=== PATIENT | male | born 1955 | race Caucasian/White ===

== ENCOUNTER → 2017-07-12 07:38 | Outpatient (CLI) | payer MEDICARE ==
[2016-03-03 12:41] VITALS: BMI 27.9
[~2017-07-12 07:38] MED LIST: CHANTIX 1 MG TAB1 MG PO; EFUDEX 5 % CREA40 GM TOPICAL; EPIVIR300 MG PO; GLUCOPHAGE500 MG PO; NEURONTIN 300300 MG PO; NORCO 7.5/325 T1 TA1 PO; NORVIR100 M1 PO; PLAVIX75 MG PO; PROAIR HFA8.5 GM INH; REYATAZ300 MG PO; ZANAFLEX4 MG PO; ZESTRIL20 MG PO
[2017-07-12 08:12] LABS: BASOPHILS 0.5 % (0-2); HEMATOCRIT 38.9 % (42.0-54.0); HEMOGLOBIN 13.8 g/dL (13.5-17.5); IMMATURE GRANULOCYTES 0.5 % (0-5); LYMPHOCYTES 37.2 % (15-50); MCH 32.7 pg (26.0-34.0); MCHC 35.5 g/dL (31.0-37.0); MCV 92.2 fL (80.0-100.0); MEAN PLATELET VOLUME 9.5 fL (7.4-10.4); MONOCYTES 7.9 % (2-11); NEUTROPHILS 50.9 % (40-80); PLATELET COUNT 137 10x3/uL (130-400); RBC 4.22 10x6/uL (4.20-6.10); RDW 12.5 % (11.5-14.5); WBC 4.3 10x3/uL (4.8-10.8)
[2017-07-12 08:23] LABS: APTT 25.2 SECONDS (22.8-39.4); PROTIME 12.8 SECONDS (11.6-15.0)
[2017-07-12 08:38] LABS: % SATURATION 25 % (15-55); IRON 79 ug/dl (35-150); TOTAL IRON BIND CAPACITY 309 ug/dl (260-445); UNSAT IRON BIND CAPACITY 230 ug/dl (150-375)
[2017-07-12 08:40] LABS: ALBUMIN 3.7 g/dL (3.4-5.0); ALKALINE PHOSPHATASE 50 U/L (46-116); ALT (SGPT) 226 U/L (10-68); BILIRUBIN - DIRECT 0.19 mg/dL (0.00-0.30); BILIRUBIN - INDIRECT 0.38 mg/dL (0.00-1.00); BILIRUBIN - TOTAL 0.57 mg/dL (0.2-1.3); CALCIUM 9.4 mg/dL (8.5-10.1); CARBON DIOXIDE 26.2 mmol/L (21.0-32.0); CHLORIDE - SERUM 96 mmol/L (98-107); CHOL - HDL RATIO 13.2 ratio (2.3-4.9); CHOLESTEROL, TOTAL 264 mg/dL (0-200); CREATININE - SERUM 1.2 mg/dL (0.6-1.3); FERRITIN 749 ng/mL (3-244); GAMMA GT 156 U/L (5-85); HDL CHOLESTEROL 20 mg/dL (32-96); POTASSIUM - SERUM 4.1 mmol/L (3.5-5.1); PROTEIN - SERUM 7.6 g/dL (6.4-8.2); SODIUM 134 mmol/L (136-145); UREA NITROGEN 20 mg/dL (7-18); eGFR NON AFRICAN AMERICAN 65 mL/min (90-120)
[2017-07-12 08:41] LABS: CALC OSMOLALITY 282 mosm/kg (275-300); GLUCOSE 312 mg/dL (74-106); TRIGLYCERIDE 747 mg/dL (30-200)
[2017-07-13 07:39] LABS: HAPTOGLOBIN 109 mg/dL (34-200)
[2017-07-13 11:21] LABS: ANA REFLEX - DIRECT Negative (Negative)
[2017-07-13 12:26] LABS: HEPATITIS C ANTIBODY <0.1 (0.0-0.9)
[2017-07-14 16:13] LABS: MITOCHONDRIAL ANTIBODY 3.9 Units (0.0-20.0)
== END | disposition home or self-care (01) ==
LOC: D.US 07:38
PROVIDERS: Internal Medicine Gastroenterology
DX: R74.8 Abnormal levels of other serum enzymes (principal); B20 Human immunodeficiency virus [HIV] disease; K64.9 Unspecified hemorrhoids; E78.2 Mixed hyperlipidemia; R74.0 Nonspecific elevation of levels of transaminase and lactic acid dehydrogenase [LDH]; R12 Heartburn; R94.5 Abnormal results of liver function studies

== ENCOUNTER → 2018-01-31 08:01 | Outpatient (CLI) | payer MEDICARE ==
[2016-03-03 12:41] VITALS: BMI 27.9
[2018-01-31 08:46] LABS: ALBUMIN 3.9 g/dL (3.4-5.0); BILIRUBIN - DIRECT 0.15 mg/dL (0.00-0.30); BILIRUBIN - INDIRECT 0.49 mg/dL (0.00-1.00); BILIRUBIN - TOTAL 0.64 mg/dL (0.2-1.3); PROTEIN - SERUM 7.6 g/dL (6.4-8.2)
== END | disposition home or self-care (01) ==
LOC: D.US 01-13 09:00
PROVIDERS: Internal Medicine Gastroenterology
DX: K76.0 Fatty (change of) liver, not elsewhere classified (principal)

== ENCOUNTER 2018-02-24 05:28 | Outpatient (CLI) | payer MEDICARE ==
[~2018-02-24] VITALS: Ht 180.3 cm; Wt 102.7 kg
[2018-02-24 06:09] LABS: APTT 28.5 SECONDS (22.8-39.4); INR 1.06 (0.85-1.17); PROTIME 13.3 SECONDS (11.6-15.0)
[2018-02-24 06:10] LABS: BASOPHILS 0.6 % (0-2); EOSINOPHILS 2.4 % (0-7); HEMATOCRIT 35.2 % (42.0-54.0); HEMOGLOBIN 12.4 g/dL (13.5-17.5); IMMATURE GRANULOCYTES 4.3 % (0-5); LYMPHOCYTES 41.1 % (15-50); MCH 32.7 pg (26.0-34.0); MCHC 35.2 g/dL (31.0-37.0); MCV 92.9 fL (80.0-100.0); MEAN PLATELET VOLUME 8.8 fL (7.4-10.4); MONOCYTES 7.5 % (2-11); NEUTROPHILS 44.1 % (40-80); RBC 3.79 10x6/uL (4.20-6.10); RDW 12.5 % (11.5-14.5); WBC 6.6 10x3/uL (4.8-10.8)
[2018-02-24 06:13] LABS: PLATELET COUNT 286 10x3/uL (130-400)
[2018-02-24 06:19] LABS: ANION GAP 15.6 mmol/L (8-16); CALCIUM 9.7 mg/dL (8.5-10.1); CARBON DIOXIDE 27.7 mmol/L (21.0-32.0); CREATININE - SERUM 1.2 mg/dL (0.6-1.3); POTASSIUM - SERUM 4.3 mmol/L (3.5-5.1)
[2018-02-24 06:59] VITALS: BP 179/89; Ht 180.3 cm; Wt 102.7 kg
[2018-02-24] MEDS ORDERED: COREG 3.1253.125 MG PO (07:10)
[2018-02-24] MEDS ORDERED: CATAPRES0.1 MG PO (07:10)
[2018-02-24] MEDS ORDERED: PLAVIX75 MG PO (07:11)
[2018-02-24] MEDS ORDERED: DOXYCYCLINE HY100 M2 PO (07:12)
[2018-02-24] MEDS ORDERED: GLIPIZIDE10 MG PO (07:13)
[2018-02-24] MEDS ORDERED: NORCO 7.5/325 T1 TA1 PO (07:14)
[2018-02-24] MEDS ORDERED: TRESIBA FL100 UNIT/1 SC (07:15)
[2018-02-24] MEDS ORDERED: COZAAR100 MG PO (07:15)
[2018-02-24] MEDS ORDERED: PROTONIX40 MG PO (07:16)
[2018-02-24] MEDS ORDERED: REQUIP0.5 MG PO ×2 (07:16→07:17)
--- NOTE | 2018-02-24 10:06 | NUR ---
pt recieved back with no pain or complications. vs per frequent vitals. pt informed that he has md orders for for 4 hrs obs. pt refused and stated he will stay 2 hrs only. he understands that an ama will be required to be signed pt stated that he would sign. dressing cdi.
== END 2018-02-24 10:55 | disposition home or self-care (01) ==
LOC: D.SP 05:28 → D.CT 08:00 → D.SP 10:55
PROVIDERS: Specialist
DX: K76.0 Fatty (change of) liver, not elsewhere classified (principal); R74.8 Abnormal levels of other serum enzymes; Z01.812 Encounter for preprocedural laboratory examination

== ENCOUNTER → 2018-06-23 13:53 | Outpatient (CLI) | payer MEDICARE ==
[2018-02-24 06:59] VITALS: BMI 31.6
[~2018-06-23 13:53] MED LIST changes: +CATAPRES0.1 MG PO; +COREG 3.1253.125 MG PO; +COZAAR100 MG PO; +DOXYCYCLINE HY100 M2 PO; +GLIPIZIDE10 MG PO; +PROTONIX40 MG PO; +REQUIP0.5 MG PO; +TRESIBA FL100 UNIT/1 SC
== END | disposition home or self-care (01) ==
LOC: D.LABREF 13:53
PROVIDERS: ATTEND Student in an Organized Health Care Education/Training Program
DX: B20 Human immunodeficiency virus [HIV] disease (principal)

== ENCOUNTER → 2018-07-07 11:02 | Outpatient (CLI) | payer MEDICARE ==
[2018-02-24 06:59] VITALS: BMI 31.6
[2018-07-07 11:53] LABS: ALBUMIN 3.8 g/dL (3.4-5.0); BILIRUBIN - DIRECT 0.1 mg/dL (0.00-0.30); BILIRUBIN - INDIRECT 0.44 mg/dL (0.00-1.00); BILIRUBIN - TOTAL 0.54 mg/dL (0.2-1.3); PROTEIN - SERUM 7.3 g/dL (6.4-8.2)
== END | disposition home or self-care (01) ==
LOC: D.LAB 11:02
PROVIDERS: ATTEND Student in an Organized Health Care Education/Training Program
DX: R89.9 Unspecified abnormal finding in specimens from other organs, systems and tissues (principal)